=== PATIENT | male | born 1990 ===

== ENCOUNTER → 2025-10-26 | Outpatient (REF) | payer OTHER ==
[2025-10-26 14:26] LABS: SEMEN APPEARANCE OPAQUE (OPAQUE); SEMEN VISCOSITY LIQUID (LIQUID); SEMEN VOLUME 4.4 ml (2.0-5.0); SPERM CONCENTRATION 93.6 M/ml (>=15.0); TOTAL PROGRESSIVE SPERM 147.2 M/Ejac.; WBC CONCENTRATION <=1 M/ml (<=1 M/ml)
== END ==
LOC: M LAB REF 14:11
PROVIDERS: ATTEND Internal Medicine
DX: N46.9 Male infertility, unspecified (principal)